=== PATIENT | female | born 1965 | race Caucasian/White ===

== ENCOUNTER 2016-06-08 16:35 | Emergency (ER) | payer MEDICAID | END 2016-06-08 18:37 | disposition home or self-care (01) | LOC: D.ER 16:35 | DX: M54.16 Radiculopathy, lumbar region (principal); M25.551 Pain in right hip; W19.XXXA Unspecified fall, initial encounter; Y93.89 Activity, other specified; Y92.019 Unspecified place in single-family (private) house as the place of occurrence of the external cause ==

== ENCOUNTER 2017-04-09 09:07 | Emergency (ER) | payer MEDICAID | END 2017-04-09 12:33 | disposition home or self-care (01) | LOC: D.ER 09:07 | DX: M54.5 Low back pain (principal); R51 Headache; K21.9 Gastro-esophageal reflux disease without esophagitis; F17.200 Nicotine dependence, unspecified, uncomplicated ==

== ENCOUNTER → 2018-02-26 19:07 | Outpatient (CLI) | payer MEDICARE | END | disposition home or self-care (01) | LOC: D.MAMMO 14:30 | DX: Z12.31 Encounter for screening mammogram for malignant neoplasm of breast (principal) ==

== ENCOUNTER 2018-04-11 07:33 | Emergency (ER) | payer MEDICARE ==
[~2018-04-11] VITALS: Ht 180.3 cm; Wt 113.6 kg
[2018-04-11 07:38] VITALS: Ht 180.3 cm; Wt 113.6 kg
[2018-04-11] MEDS ORDERED: NORCO 10-325 TA1 TAB PO (07:40)
[2018-04-11] MEDS ORDERED: DEXILANT60 MG PO (07:40)
[2018-04-11] MEDS ORDERED: PROVENTIL/2.5 MG/3 M INH (07:41)
[2018-04-11] MEDS ORDERED: NAPROSYN500 MG PO (09:09)
[2018-04-11] MEDS ORDERED: ZOFRAN4 MG PO (09:09)
[2018-04-11 09:49] VITALS: BP 142/74
== END 2018-04-11 09:44 | disposition home or self-care (01) ==
LOC: D.ER 07:33
DX: S06.0X0A Concussion without loss of consciousness, initial encounter (principal); Y04.2XXA Assault by strike against or bumped into by another person, initial encounter; Y93.89 Activity, other specified; Y92.019 Unspecified place in single-family (private) house as the place of occurrence of the external cause; S76.912A Strain of unspecified muscles, fascia and tendons at thigh level, left thigh, initial encounter; S76.911A Strain of unspecified muscles, fascia and tendons at thigh level, right thigh, initial encounter; R11.0 Nausea; J44.9 Chronic obstructive pulmonary disease, unspecified; Z86.59 Personal history of other mental and behavioral disorders; K21.9 Gastro-esophageal reflux disease without esophagitis; F17.200 Nicotine dependence, unspecified, uncomplicated

== ENCOUNTER → 2018-12-27 08:28 | Outpatient (CLI) | payer MEDICARE ==
[2018-04-11 07:38] VITALS: BMI 34.9
[~2018-12-27 08:28] MED LIST: DEXILANT60 MG PO; HYDROCODON-ACE1 EA10 PO; NAPROSYN500 MG PO; NEXIUM40 MG PO; NORCO 10-325 TA1 TAB PO; PROVENTIL/2.5 MG/3 M INH; ZOFRAN4 MG PO
== END | disposition home or self-care (01) ==
LOC: D.MRI 08:28
PROVIDERS: ATTEND Family Medicine
DX: R91.1 Solitary pulmonary nodule (principal); M54.5 Low back pain

== ENCOUNTER 2018-12-30 07:47 | Emergency (ER) | payer MEDICARE ==
[~2018-12-30] VITALS: Ht 180.3 cm; Wt 100.0 kg
[~2018-12-30 07:47] MED LIST changes: -HYDROCODON-ACE1 EA10 PO; -NEXIUM40 MG PO
[2018-12-30 07:56] VITALS: Ht 180.3 cm; Wt 100.0 kg
[2018-12-30] MEDS ORDERED: NEXIUM40 MG PO (08:00)
[2018-12-30] MEDS ORDERED: HYDROCODON-ACE1 EA10 PO (08:14)
[2018-12-30 08:54] VITALS: BP 172/62
== END 2018-12-30 09:12 | disposition home or self-care (01) ==
LOC: D.ER 07:47
DX: S30.0XXA Contusion of lower back and pelvis, initial encounter (principal); W01.0XXA Fall on same level from slipping, tripping and stumbling without subsequent striking against object, initial encounter; J44.9 Chronic obstructive pulmonary disease, unspecified

== ENCOUNTER → 2019-02-13 09:06 | Outpatient (CLI) | payer MEDICARE ==
[2018-12-30 07:56] VITALS: BMI 30.7
[~2019-02-13 09:06] MED LIST changes: +HYDROCODON-ACE1 EA10 PO; +NEXIUM40 MG PO
== END | disposition home or self-care (01) ==
LOC: D.US 09:06
PROVIDERS: ATTEND Family Medicine
DX: R10.11 Right upper quadrant pain (principal)

== ENCOUNTER → 2019-10-29 13:50 | Outpatient (CLI) | payer MEDICARE ==
[2018-12-30 07:56] VITALS: BMI 30.7
== END | disposition home or self-care (01) ==
LOC: D.MRI 13:50
PROVIDERS: ATTEND Clinical Nurse Specialist Family Health
DX: M25.561 Pain in right knee (principal)

== ENCOUNTER → 2020-02-03 09:39 | Outpatient (CLI) | payer MEDICARE ==
[2018-12-30 07:56] VITALS: BMI 30.7
== END | disposition home or self-care (01) ==
LOC: D.CT 09:39
PROVIDERS: ATTEND Family Medicine
DX: R10.10 Upper abdominal pain, unspecified (principal)

== ENCOUNTER 2020-02-05 16:34 | Outpatient (CLI) | payer MEDICARE ==
[2018-12-30 07:56] VITALS: BMI 30.7
== END 2020-02-05 23:59 | disposition home or self-care (01) ==
LOC: D.MAMMO 16:34
PROVIDERS: ATTEND Family Medicine
DX: Z12.31 Encounter for screening mammogram for malignant neoplasm of breast (principal)